=== PATIENT | female | born 1980 | race Caucasian/White ===

== ENCOUNTER → 2022-09-19 08:09 | Outpatient (BNVA) | payer OTHER, SELFPAY | PROVIDERS: PCP Internal Medicine; Visit Provider Internal Medicine Rheumatology | DX: M25.50 Pain in unspecified joint (principal); M79.7 Fibromyalgia; E11.9 Type 2 diabetes mellitus without complications; R40.0 Somnolence | CPT/HCPCS: 99202 ==